=== PATIENT | male | born 1940 | race Caucasian/White ===

== ENCOUNTER 2019-06-23 16:44 | Observation (INO) | payer MEDICARE, BC ==
[2019-06-23 17:07] LABS: ABS Eosinophils 0.2 10^3/ul (0-0.6); ABS Lymphocytes 1.3 10^3/ul (1.0-4.8); ABS Monocytes 0.5 10^3/ul (0-0.8); ABS Neutrophils 3.5 10^3/ul (1.5-7.7); Eosinophil % 3.6 %; Hematocrit 41 % (42-52); Hemoglobin 13.9 g/dL (14.0-18.0); Lymphocyte % 23.4 %; Mean Corpuscular HGB Conc 34 g/dL (31-36); Mean Corpuscular Hemoglobin 30 pg (27-31); Mean Corpuscular Volume 89 fL (80-94); Mean Platelet Volume 8.5 fL (7.4-10.4); Platelet Count 167 10^3/uL (150-450); Red Cell Distribution Width 14 % (10-15); White Blood Count 5.5 10^3/uL (3.5-10.8)
[2019-06-23 17:18] LABS: INR 1.13 (0.82-1.09)
[2019-06-23 17:23] LABS: Albumin 4.5 g/dL (3.2-5.2); Albumin/Globulin Ratio 1.7 (1-3); BUN/Creatinine Ratio 19.7 (8-20); Calcium 9.2 mg/dL (8.6-10.3); EGFR African American 66.4 (>60); EGFR Non-African American 54.8 (>60); Globulin 2.7 g/dL (2-4); Potassium 4.3 mmol/L (3.5-5.0); Total Bilirubin 0.4 mg/dL (0.2-1.0); Total Protein 7.2 g/dL (6.4-8.9)
[2019-06-23 17:25] LABS: Troponin I 0.01 ng/mL (<0.03)
--- NOTE | 2019-06-23 19:14 | ED ---
HPI Chest Pain - HPI Summary HPI Summary: 79 year old M arriving via private car from [facility] with daughter complains of intermittent episodes of non-radiating, bilateral chest pain, lasting several minutes, that started while he was eating today 06/23/2019 AM. Patient states he has never had pain like this before. Patient does not have chest pain currently. Patient is a resident at [facility]. Patient called daughter this morning and reported bilateral shoulder and bilateral chest pain. [facility] nurse took his vital signs. Patient had temperature 99.9F. Was seen at [facility] and referred to the ED for further evaluation. Patient denies fever, chills, erythema of eyes, sore throat, chest pain, shortness of breath, cough, abdominal pain, nausea/vomiting, dysuria, hematuria, myalgia, back pain, edema, rash, dizziness. Symptoms rated 0/10 in severity. Symptoms aggravated by nothing. Symptoms alleviated by nothing. Medications reviewed. No cardiac FHx. - History of Current Complaint Chief Complaint: EDChestPainROMI Time Seen by Provider: 06/23/19 18:56 Hx Obtained From: Patient Onset/Duration: Started Hours Ago, Still Present Timing: Constant Current Severity: None Pain Intensity: 0 Pain Scale Used: 0-10 Numeric Chest Pain Location: Diffuse Chest Pain Radiates: No Aggravating Factor(s): Nothing Alleviating Factor(s): Nothing Associated Signs and Symptoms: Positive: Negative - fever, chills, erythema of eyes, sore throat, chest pain, shortness of breath, cough, abdominal pain, nausea/vomiting, dysuria, hematuria, myalgia, back pain, edema, rash, dizziness - Allergy/Home Medications Allergies/Adverse Reactions: Allergies Allergy/AdvReac Type Severity Reaction Status Date / Time No Known Allergies Allergy Verified 06/23/19 17:03 Home Medications: Home Medications Apixaban* [Eliquis*] 5 mg PO BID 06/23/19 [History Confirmed 06/23/19] Atorvastatin* [Lipitor*] 20 mg PO DAILY 06/23/19 [History Confirmed 06/23/19] Cyanocobalamin TAB* [Vitamin B12 TAB*] 1,000 mcg PO DAILY 06/23/19 [History Confirmed 06/23/19] Digoxin 125 mcg PO DAILY 06/23/19 [History Confirmed 06/23/19] Donepezil HCl [Aricept] 10 mg PO DAILY 06/23/19 [History Confirmed 06/23/19] Loperamide CAP* [Imodium CAP*] 2 mg PO Q4H PRN 06/23/19 [History Confirmed 06/23] QUEtiapine TAB* [Seroquel 25 MG TAB*] 25 mg PO BID 06/23/19 [History Confirmed 06/23/19] PMH/Surg Hx/FS Hx/Imm Hx Endocrine/Hematology History: Reports: Other Endocrine/Hematological Disorders - hyperlipidemia Denies: Hx Diabetes Cardiovascular History: Reports: Hx Hypercholesterolemia, Other Cardiovascular Problems/Disorders - atrial flutter Denies: Hx Hypertension Sensory History: Reports: Hx Contacts or Glasses Opthamlomology History: Reports: Hx Contacts or Glasses Psychiatric History: Reports: Hx Anxiety - Surgical History Surgical History: None Infectious Disease History: No Infectious Disease History: Denies: Traveled Outside the [place] in Last 30 Days - Family History Known Family History: Negative: Cardiac Disease - Social History Alcohol Use: None Substance Use Type: Reports: None Hx Tobacco Use: No Smoking Status (MU): Never Smoked Tobacco Review of Systems Negative: Fever, Chills Negative: Erythema Negative: Sore Throat Positive: Chest Pain Negative: Shortness Of Breath, Cough Negative: Abdominal Pain, Vomiting, Nausea Negative: dysuria, hematuria Musculoskeletal: Negative - BACK PAIN Negative: Myalgia, Edema Negative: Rash Neurological/Mental Status: Negative - Dizziness All Other Systems Reviewed And Are Negative: Yes Physical Exam - Summary Physical Exam Summary: Constitutional: Well-developed, Well-nourished, Alert. (-) Distressed Skin: Warm, Dry HENT: Normocephalic; Atraumatic Eyes: Conjunctiva normal Neck: Musculoskeletal ROM normal neck. (-) JVD, (-) Stridor, (-) Tracheal deviation Cardio: Rhythm regular, rate normal, Heart sounds normal; Intact distal pulses; The pedal pulses are 2+ and symmetric. Radial pulses are 2+ and symmetric. (-) Murmur Pulmonary/Chest wall: Effort normal. (-) Respiratory distress, (-) Wheezes, (-) Rales. No reproducible chest tenderness Abd: Soft, (-) tenderness, (-) Distension, (-) Guarding, (-) Rebound Musculoskeletal: (-) Edema Lymph: (-) Cervical adenopathy Neuro: Alert, Oriented x3 Psych: Mood and affect Normal Triage Information Reviewed: Yes Vital Signs On Initial Exam: Initial Vitals Temp Pulse Resp BP Pulse Ox 97.6 F 60 16 139/65 100 06/23/19 16:57 06/23/19 16:57 06/23/19 16:57 06/23/19 16:57 06/23/19 16:57 Vital Signs Reviewed: Yes Procedures - Sedation Patient Received Moderate/Deep Sedation with Procedure: No Diagnostics - Vital Signs Vital Signs Temp Pulse Resp BP Pulse Ox 06/23/19 16:57 97.6 F 60 16 139/65 100 - Laboratory Lab Results: Lab Results 06/23/19 06/23/19 06/23/19 Range/Units 16:57 16:57 16:57 WBC 5.5 (3.5-10.8) 10^3/uL RBC 4.60 (4.18-5.48) 10^6 /uL Hgb 13.9 L (14.0-18.0) g/dL Hct 41 L (42-52) % MCV 89 (80-94) fL MCH 30 (27-31) pg MCHC 34 (31-36) g/dL RDW 14 (10-15) % Plt Count 167 (150-450) 10^3/uL MPV 8.5 (7.4-10.4) fL Neut % (Auto) 62.6 % Lymph % (Auto) 23.4 % [place] % (Auto) 9.5 % Eos % (Auto) 3.6 % Baso % (Auto) 0.9 % Absolute Neuts (auto) 3.5 (1.5-7.7) 10^3/ul Absolute Lymphs (auto) 1.3 (1.0-4.8) 10^3/ul Absolute Monos (auto) 0.5 (0-0.8) 10^3/ul Absolute Eos (auto) 0.2 (0-0.6) 10^3/ul Absolute Basos (auto) 0.0 (0-0.2) 10^3/ul Absolute Nucleated RBC 0.0 10^3/ul Nucleated RBC % 0.0 INR (Anticoag Therapy) 1.13 H (0.82-1.09) Sodium 140 (135-145) mmol/L Potassium 4.3 (3.5-5.0) mmol/L Chloride 106 (101-111) mmol/L Carbon Dioxide 28 (22-32) mmol/L Anion Gap 6 (2-11) mmol/L BUN 25 H (6-24) mg/dL Creatinine 1.27 H (0.67-1.17) mg/dL Est GFR ( Amer) 66.4 (>60) Est GFR (Non-Af Amer) 54.8 (>60) BUN/Creatinine Ratio 19.7 (8-20) Glucose 82 (70-100) mg/dL Calcium 9.2 (8.6-10.3) mg/dL Total Bilirubin 0.40 (0.2-1.0) mg/dL AST 25 (13-39) U/L ALT 25 (7-52) U/L Alkaline Phosphatase 85 (34-104) U/L Troponin I 0.01 (<0.03) ng/mL Total Protein 7.2 (6.4-8.9) g/dL Albumin 4.5 (3.2-5.2) g/dL Globulin 2.7 (2-4) g/dL Albumin/Globulin Ratio 1.7 (1-3) Result Diagrams: 06/23/19 16:57 06/23/19 16:57 Lab Statement: Any lab studies that have been ordered have been reviewed, and results considered in the medical decision making process. - Radiology CXR Radiology Interpretation Completed By: ED Physician - NO ACUTE DISEASE pending official report - EKG 1649 Cardiac Rate: Bradycardia - 57 BPM EKG Rhythm: Sinus Bradycardia Summary of EKG Findings: NO STEMI. ED physician has reviewed and interpreted this EKG. 2053 Cardiac Rate: Bradycardia - 58 BPM EKG Rhythm: Sinus Bradycardia Summary of EKG Findings: NO STEMI. ED physician has reviewed and interpreted this EKG. Re-Evaluation - Re-Evaluation First Eval Re-Evaluation Time: 20:49 Change: Worse - patient having chest pain again per nurse will order another EKG Chest Pain Course/Dx - Course Course Of Treatment: 79 y/o M from [facility] with cardiac hx complains of intermittent episodes of non-radiating, bilateral chest pain, lasting several minutes, that started while he was eating today 06/23/2019 AM. No reproducible chest tenderness upon physical exam. Bloodwork results with no significant abnormalities except for Hgb 13.9, Hct 41, INR 1.13, BUN 25, creatinine 1.27. An EKG shows sinus bradycardia 57 BPM. NO STEMI. A second EKG shows sinus bradycardia 58 BPM. NO STEMI. CXR shows NO ACUTE DISEASE. Heart score of 4. No active chest pain. Spoke with Dr. Saavedra hospitalist who agrees to admit patient. - Diagnoses Provider Diagnoses: Substernal chest pain - Provider Notifications Discussed Care Of Patient With: Alex Saavedra Time Discussed With Above Provider: 19:42 Instructed by Provider To: Other - Dr. Quentin jacintoist is aware of patient and agrees to admit Discharge ED - Sign-Out/Discharge Documenting (check all that apply): Patient Departure - Discharge Plan Condition: Stable Disposition: ADMITTED TO [facility] Referrals: Ana Tran MD [Primary Care Provider] - - Attestation Statements Document Initiated by Scribe: Yes Documenting Scribe: Jacquelin Castillo Provider For Whom Scribe is Documenting (Include Credential): Jose Luis Arroyo MD Scribe Attestation: Jacquelin Mckeon, scribed for Jose Luis Arroyo MD on 06/23/19 at 2125.
[2019-06-23] MEDS ORDERED: Aspirin 81 mg CHEW TAB* 81 MG TAB.CHEW PO ONE (19:21)
[2019-06-23 20:05] LABS: Digoxin 0.8 ng/ml (0.8-2.0)
[2019-06-23] MEDS ORDERED: Nitroglycerin TAB 0.4 MG* 0.4 MG TAB SL ONE (20:49)
[2019-06-23] MEDS ORDERED: Loperamide CAP* 2 MG PO PRN (22:34)
--- NOTE | 2019-06-23 23:54 | HP ---
CC: Dr. Ana Tran * ADMISSION HISTORY AND PHYSICAL: DATE OF ADMISSION: 06/23/19 PRIMARY CARE PHYSICIAN: Dr. Ana Tran. CHIEF COMPLAINT: Chest pain. HISTORY OF PRESENT ILLNESS: This is a 79-year-old male with past medical history of aflutter, diagnosed recently at [facility] in February of last year, anxiety, hyperlipidemia, dementia, is a resident of [facility], [place], was in his usual state of health up until this morning when he woke up and he started having some chest pain after his meal. The patient is pointing to lateral aspect of his chest and ribs and also told his daughter that he was having shoulder pain and he states that it is because of something being mixed in his food, mostly complaining about crappy food at the assisted living facility that he was at. He was having difficulty recollecting the month and the year, stating that it is May of 2007 and unable to recall the city that he was in. Daughter stated that he was recently moved to [place] due to his memory impairment, so he could not recall the exact city name and has dementia, so could not give much other history. He otherwise denies any shortness of breath or palpitations, any abdominal pain, nausea, vomiting, any urinary burning sensation, but again as mentioned, the patient's history by himself is unreliable. He is mostly focused on the fact that he gets bad food at the facility he is living at and has rib pain and pointing towards both lateral aspect of his chest during my evaluation. No other fever or chills were documented. PAST MEDICAL HISTORY: As mentioned atrial flutter, which was diagnosed in February at [place] and has been started on some blood thinners with Eliquis and digoxin. He also has some anxiety for which he was started on some Seroquel and hyperlipidemia, on Lipitor. He was given some metoprolol for his rate control of AFib, but this was stopped due to some reaction, which the daughter is unable to recollect and for his dementia, he is on some donepezil. He also has some B12 deficiency, which he is getting replaced via oral B12 supplementation. ALLERGIES: No known documented allergies. FAMILY HISTORY: Father in his 80s. The patient's mother apparently very young according to the daughter who is present at bedside, but the patient is unable to recollect much details about how his mom and the daughter is unable to give any further family history. SOCIAL HISTORY: The patient used to work in the [employer] and currently retired. Denies any smoking, alcohol, or drug use. With his daughter, Jessika Quan, being the surrogate decision maker and the patient is otherwise full code. REVIEW OF SYSTEMS: A 14-point review of systems did not reveal any new information other than what is mentioned in the HPI. PHYSICAL EXAMINATION GENERAL: The patient is awake, alert, oriented x3, did not appear to be in any acute respiratory distress. VITAL SIGNS: In the ER, BP was noted to be 138/69, heart rate 58, respiration rate 16, saturating 98% on room air, temperature recorded at 97.6. HEAD AND NECK: Atraumatic, normocephalic. Bilateral pupils are reactive. Oral mucosa was moist. Neck: Supple. No jugular venous distention. LUNGS: Clear to auscultation bilaterally. No wheezing, rhonchi, or rales. HEART: S1, S2. Regular rate and rhythm. ABDOMEN: Soft, nontender, nondistended. EXTREMITIES: No cyanosis, clubbing, or edema. DIAGNOSTIC STUDIES/LAB DATA: Labs: CBC shows normal white count, hemoglobin shows mild anemia with hemoglobin of 13.9, hematocrit 41, platelet count was normal. Coagulation profile shows minimally elevated INR at 1.13. Comprehensive metabolic panel shows elevated BUN at 25, creatinine 1.27, which compared to his older lab shows no significant change. Digoxin level was 0.8. EKG showed sinus bradycardia at 57 beats per minute. Repeat EKG again shows sinus bradycardia at 58. Portable chest x-ray did not show any obvious changes. I could not appreciate any rib fractures or any changes in the lungs. No infiltrates or congestive changes were noted and no cardiomyopathy. IMPRESSION: A 79-year-old gentleman with dementia, aflutter, anxiety, hyperlipidemia, here due to chest pain. It is not very clear if this is coronary event. Serial troponins so far have been negative. ASSESSMENT AND PLAN: 1. Chest pain, rule out acute coronary syndrome. Serial troponins so far negative. We will get one more troponin and get an echocardiogram and stress test in the morning. If negative, the patient could be considered to be discharged. Follow up echocardiogram. 2. History of atrial flutter and sinus bradycardia. We will monitor him on telemetry. Continue his digoxin and Eliquis as the digoxin level was therapeutic. 3. History of dyslipidemia. We will check a fasting lipid panel and I will also get an A1c to rule out any underlying diabetes, which is undiagnosed. 4. DVT prophylaxis: The patient is already on Eliquis. 5. Code status: The patient is full code and the daughter is the surrogate decision maker. [id number]/[facility] #: [id number] MTDGardenia
[2019-06-24 05:07] LABS: ABS Eosinophils 0.2 10^3/ul (0-0.6); ABS Lymphocytes 1.3 10^3/ul (1.0-4.8); ABS Monocytes 0.5 10^3/ul (0-0.8); Eosinophil % 4.1 %; Hematocrit 39 % (42-52); Hemoglobin 13.2 g/dL (14.0-18.0); Lymphocyte % 24.9 %; Mean Corpuscular HGB Conc 34 g/dL (31-36); Mean Corpuscular Hemoglobin 30 pg (27-31); Mean Corpuscular Volume 89 fL (80-94); Mean Platelet Volume 7.8 fL (7.4-10.4); Nucleated Red Blood Cells % 0.1; Platelet Count 144 10^3/uL (150-450); Red Blood Count 4.37 10^6 /uL (4.18-5.48); Red Cell Distribution Width 14 % (10-15); White Blood Count 5.1 10^3/uL (3.5-10.8)
[2019-06-24 05:26] LABS: BUN/Creatinine Ratio 19.2 (8-20); Calcium 8.7 mg/dL (8.6-10.3); EGFR African American 64.6 (>60); EGFR Non-African American 53.4 (>60); Potassium 4.2 mmol/L (3.5-5.0)
[2019-06-24] MEDS ORDERED: Apixaban* 5 MG TAB PO SCH (09:00)
[2019-06-24] MEDS ORDERED: QUEtiapine TAB* 25 MG PO SCH (09:00)
[2019-06-24] MEDS ORDERED: Cyanocobalamin TAB* 500 MCG PO SCH (09:00)
[2019-06-24] MEDS ORDERED: Donepezil TAB* 5 MG PO SCH (09:00)
[2019-06-24] MEDS ORDERED: Digoxin TAB* 0.125 MG PO SCH (09:00)
[2019-06-24] MEDS ORDERED: Atorvastatin* 20 MG TAB PO SCH (09:00)
[2019-06-24] MEDS ORDERED: Regadenoson* 0.4 MG/5 ML SYRINGE ONE (09:50)
[2019-06-24] MEDS ORDERED: Aminophylline IV* 25 MG/ML 10 ML VIAL ONE (09:50)
[2019-06-24 12:38] VITALS: BP 142/63
--- NOTE | 2019-06-24 14:00 | CONSULT ---
Subjective Date of Service: 06/24/19 Interval History: Admission Date: 06/23/19 Consult date: 06/24/2019 Service: Hospitalist PCP: Dr. Ana Tran CHIEF COMPLAINT: shoulder, thorax discomfort and fever Reason for consult: stress test results HISTORY OF PRESENT ILLNESS: This is a 79-year-old man with a history as below. He's here with his daughter who lives near [place]. He was recently and moved to [facility] afterwards. His history is not felt to be reliable due to dementia and obtained from daughter and H+P. He was complaining of bilateral shoulder and lateral costal pain and there may have been a fever. He is asymptomatic now. I reviewed his stress MPI. The vasodilator and imaging portions were normal. It was a normal study. The echocardiogram showed no findings that would explain his presentation. PMhx: mike reportedly diagnosed 02/2019 on eliquis and digoxin anxiety hyperlipidemia dementia soc hx: Lives [facility] ALLERGIES: No known documented allergies. FAMILY HISTORY: Non-contributory SOCIAL HISTORY: The patient used to work in the [employer] and currently retired. Denies any smoking, alcohol, or drug use. With his daughter, Jessika Quan, being the surrogate decision maker and the patient is otherwise full code. Medications Active Medications: Apixaban (Eliquis*) 5 mg PO BID [facility] Last Admin: 06/24/19 11:36 Dose: 5 mg Atorvastatin Calcium (Lipitor*) 20 mg PO DAILY [facility] Last Admin: 06/24/19 11:37 Dose: 20 mg Cyanocobalamin (Vitamin B12 Tab*) 1,000 mcg PO DAILY [facility] Last Admin: 06/24/19 11:37 Dose: 1,000 mcg Digoxin (Lanoxin Tab*) 0.125 mg PO DAILY [facility] Donepezil HCl (Aricept Tab*) 10 mg PO DAILY [facility] Last Admin: 06/24/19 11:35 Dose: 10 mg Loperamide HCl (Imodium Cap*) 2 mg PO Q4H PRN PRN Reason: DIARRHEA Quetiapine Fumarate (Seroquel Tab*) 25 mg PO BID [facility] Last Admin: 06/24/19 11:35 Dose: 25 mg Home Medications: Apixaban* [Eliquis*] 5 mg PO BID 06/23/19 [History Confirmed 06/23/19] Atorvastatin* [Lipitor*] 20 mg PO DAILY 06/23/19 [History Confirmed 06/23/19] Cyanocobalamin TAB* [Vitamin B12 TAB*] 1,000 mcg PO DAILY 06/23/19 [History Confirmed 06/23/19] Digoxin 125 mcg PO DAILY 06/23/19 [History Confirmed 06/23/19] Donepezil HCl [Aricept] 10 mg PO DAILY 06/23/19 [History Confirmed 06/23/19] Loperamide CAP* [Imodium CAP*] 2 mg PO Q4H PRN 06/23/19 [History Confirmed 06/23] QUEtiapine TAB* [Seroquel 25 MG TAB*] 25 mg PO BID 06/23/19 [History Confirmed 06/23/19] Review of Systems - Measurements Intake and Output: Intake and Output Last 24 Hours 06/22/19 06/23/19 06/24/19 06/25/19 06:59 06:59 06:59 06:59 Intake Total 0 Balance 0 Weight 175 lb 6.4 oz Intake: Oral 0 - Review of Systems Review of Systems Statement: unobtainable due to dementia history Objective Vital Signs: Temp Pulse Resp BP Pulse Ox 97.4 F 55 20 142/63 100 06/24/19 11:43 06/24/19 11:43 06/24/19 11:43 06/24/19 11:43 06/24/19 11:43 Oxygen Devices in Use Now: None Appearance: nad, pleasant Ears/Nose/Mouth/Throat: NL Teeth, Lips, Gums, Clear Oropharnyx Neck: NL Appearance and Movements; NL JVP, Trachea Midline Respiratory: Symmetrical Chest Expansion and Respiratory Effort, Clear to Auscultation Cardiovascular: NL Sounds; No Murmurs; No JVD, RRR, No Edema Abdominal: NL Sounds; No Tenderness; No Distention Extremities: No Edema Skin: No Rash or Ulcers Neurological: - - awake, alert Laboratory Results: 06/24/19 05:01 06/24/19 05:01 INR (Anticoag Therapy) 1.13 (0.82-1.09) H 06/23/19 16:57 Total Bilirubin 0.40 mg/dL (0.2-1.0) 06/23/19 16:57 AST 25 U/L (13-39) 06/23/19 16:57 ALT 25 U/L (7-52) 06/23/19 16:57 Alkaline Phosphatase 85 U/L (34-104) 06/23/19 16:57 Total Protein 7.2 g/dL (6.4-8.9) 06/23/19 16:57 Albumin 4.5 g/dL (3.2-5.2) 06/23/19 16:57 Globulin 2.7 g/dL (2-4) 06/23/19 16:57 Albumin/Globulin Ratio 1.7 (1-3) 06/23/19 16:57 Triglycerides 71 mg/dL 06/24/19 05:01 Cholesterol 126 mg/dL 06/24/19 05:01 LDL Cholesterol 60 mg/dL 06/24/19 05:01 HDL Cholesterol 52.0 mg/dL 06/24/19 05:01 06/23/19 06/23/19 06/23/19 16:57 20:07 23:05 Troponin I 0.01 0.01 0.01 Diagnostic Imaging: Exam Date: 06/23/19 cxr IMPRESSION: No acute cardiopulmonary process by radiograph. EKG Data: Ekg NSr 57 bpm, lafb Assessment/Plan I am not sure what the cause of patients symptoms were. It does not appear to be cardiac related. He can continue the same medications under Dr. Tran's care and be discharged from a cardiac standpoint.
--- NOTE | 2019-06-24 15:18 | ECHO ---
*[facility]* [place] [address] Fax #: [phone] Transthoracic Echocardiogram Patient: Bryant Gonzalez : 1940 Study Date: 06/24/2019 Age: 79 Gender: M HR: 63 bpm Height: 73 in /185.4 cm BSA: 2.03 m^2 Weight: 174.6 lb /79.4 kg BMI: 23.1 kg/m^2 *Criminal Defense Lawyer: * Lalitha Sheehan [facility] *Referring Physician: * Alex Saavedra *Reading Physician: * Farhan Snyder MD Indications: Chest Pain, unspecified. History: Atrial flutter. Risk factors: Dyslipidemia. Conclusions Summary: - Left ventricle: The cavity size is normal. Wall thickness is mildly increased. Systolic function is normal. The estimated ejection fraction is 55-60%. Wall motion is normal; there are no regional wall motion abnormalities. - Right ventricle: The cavity size is normal. Systolic function is normal. Systolic pressure is within the normal range. - Left atrium: The atrium is mildly to moderately dilated. - Aortic root: The aortic root is mildly dilated. - No significant valvular abnormalities noted. Study data: Transthoracic echocardiogram. Procedure: Transthoracic echocardiography was performed. Image quality was good. Complete 2D, spectral Doppler, and color flow Doppler. Location: Bedside. Patient status: Inpatient. Patient room number: 439. Rhythm: Normal sinus rhythm. Findings Left ventricle: The cavity size is normal. Wall thickness is mildly increased. Systolic function is normal. The estimated ejection fraction is 55-60%. Wall motion is normal; there are no regional wall motion abnormalities. There is no consistent Doppler evidence of clinically significant diastolic dysfunction. Patient unable to valsalva appropriately. Right ventricle: The cavity size is normal. Systolic function is normal. Systolic pressure is within the normal range. Left atrium: The atrium is mildly to moderately dilated. Right atrium: The atrium is mildly dilated. Mitral valve: The leaflets are mildly thickened. There is no evidence of stenosis. There is mild regurgitation. Aortic valve: The valve is trileaflet. The leaflets are mildly thickened. There is no evidence of stenosis. There is trace regurgitation. Tricuspid valve: The leaflets are normal thickness. There is no evidence of stenosis. There is mild regurgitation. Pulmonic valve: The leaflets are normal thickness. There is no evidence of stenosis. There is trace regurgitation. Aorta: Aortic root: The aortic root is mildly dilated. Ascending aorta: The ascending aorta is appears normal. Aortic arch: The aortic arch is poorly visualized. Pericardium: There is no significant pericardial effusion. Pulmonary arteries: The main pulmonary artery is normal-sized. Systolic pressure is within the normal range. Systemic veins: Inferior vena cava: The vessel is normal in size. There is (>= 50%) respiratory change in the IVC dimension. Measurements Left ventricle Value Ref Aortic valve Value Ref TIFFANY, LAX 5.2 cm 4.2 - 5.8 Jumana diam, ED 2.2 cm ----- ESD, LAX 3.8 cm 2.5 - 4.0 Peak v, S 1.31 m/sec ----- FS, LAX 28 % 25 - 43 VTI, S 26.9 cm ----- PW, ED, LAX (H) 1.1 cm 0.6 - 1.0 Mean grad, S 3.0 mm Hg ----- FS 28 % 25 - 43 Peak grad, S 7.0 mm Hg ----- PW, ED (H) 1.1 cm 0.6 - 1.0 LVOT/AV, VTI ratio 0.59 ----- E', lat jumana, TDI (L) 7.0 cm/sec >=10.0 E/e', lat jumana, 9 Mitral valve Value Ref TDI Peak E 0.64 m/sec ----- E', med jumana, TDI (L) 5.8 cm/sec >=7.0 Peak A 0.55 m/sec --- -- E/e', med jumana, 11 Decel time 204 ms ----- TDI Peak E/A ratio 1.2 ----- E', avg, TDI 6.4 cm/sec E/e', avg, TDI 10 <=14 Pulmonic valve Value Ref Peak v, S 1.13 m/sec ----- LVOT Value Ref Peak grad, S 5.0 mm Hg ----- Peak juan, S 0.84 m/sec DE v, ED 0.83 m/sec ----- VTI, S 16.0 cm Mean grad, S 1 mm Hg Tricuspid valve Value Ref TR peak v 2.4 m/sec <=2.8 Ventricular septum Value Ref Peak RV-RA grad, S 23 mm Hg ----- IVS, ED 1.0 cm 0.6 - 1.0 Aortic root Value Ref Right ventricle Value Ref Root diam 3.8 cm <4.2 TIFFANY, LAX 3.1 cm TIFFANY minor ax, A4C (H) 3.8 cm 1.9 - 3.5 Ascending aorta Value Ref mid AAo AP diam, S 3.3 cm ----- Pressure, S 26 mm Hg Pulmonary artery Value Ref Left atrium Value Ref Pressure, S 21.0 mm Hg ----- AP dim, ES 3.50 cm 3.00 - 4.00 Inferior vena cava Value Ref ML dim, A4C 5.0 cm Diam 1.9 cm ----- SI dim, A4C 5.2 cm Vol/bsa, ES, 1-p 33 ml/m^2 12 - 37 A4C Vol/bsa, ES, A/L (H) 41 ml/m^2 16 - 34 Right atrium Value Ref SI dim, ES (H) 6.0 cm 3.4 - 5.3 ML dim, ES, A4C 4.4 cm 2.6 - 4.4 Estimated RAP 3 mm Hg Legend: (L) and (H) tamie values outside specified reference range. Prepared and electronically signed by Farhan Snyder MD 06/24/2019 15:18
--- NOTE | 2019-06-25 02:17 | DS ---
CC: Dr. Tran * DISCHARGE SUMMARY: DATE OF ADMISSION: 06/23/19 DATE OF DISCHARGE: 06/24/19 PRIMARY CARE PROVIDER: Dr. Tran. ATTENDING PHYSICIAN: Dr. Oropeza * (dictated by Himanshu Nuñez NP) CONSULTING PHYSICIAN: Dr. Farhan Snyder, Cardiology. PRIMARY DIAGNOSES: 1. Chest pain. 2. History of atrial flutter/atrial fibrillation. 3. History of dyslipidemia. 4. Anxiety. 5. Dementia. 6. B12 deficiency. STUDIES WHILE IN THE HOSPITAL: 1. EKG, sinus bradycardia. 2. Chest x-ray: Impression: No filtrates or congestive changes were noted. No acute cardiopulmonary process by radiograph. 3. Transthoracic echo: Left ventricle : The cavity size is normal. Wall thickness is mildly increased. Systolic function is normal. The estimated ejection fraction is 55% to 60%. Wall motion is normal. There is no regional wall motion abnormalities. Right ventricle: The cavity size is normal. Systolic function is normal. Systolic pressure is within normal limits. Left atrium: The atrium is mildly to moderately dilated. Aortic root: The aortic root is mildly dilated. No significant valvular abnormalities noted. 4. Nuclear med scan: Nuclear portion revealed low risk. Findings suggested a small area of ischemia in the apex. EKG portion revealed no ischemic changes. DISCHARGE HOME MEDICATIONS: Continued home medications: 1. Seroquel 25 mg p.o. b.i.d. 2. Imodium 2 mg p.o. q.4 hours p.r.n. 3. Aricept 10 mg p.o. daily. 4. Digoxin 125 mcg p.o. daily. 5. Vitamin B12 1000 mcg p.o. daily. 6. Lipitor 20 mg p.o. daily. 7. Eliquis 5 mg p.o. b.i.d. No new discontinued or changed medications. HISTORY OF PRESENT ILLNESS/HOSPITAL COURSE: Mr. Gonzalez is a 79-year-old male with a past medical history significant for atrial flutter/atrial fibrillation, anxiety, dementia, vitamin B deficiency; who presented to the emergency department on 06/23/19 with reports of chest pain. Please see history and physical dictated by Alex Saavedra MD for complete summary of the events leading to this hospitalization, but in short, the patient had lateral chest pain and rib pain and shoulder pain upon waking on 02/13/20. The patient was admitted to the hospital and had repeat troponins, which remained 0.01. The patient remained on tele and had no events. The patient is currently symptom-free. The patient had an echocardiogram, which is unremarkable as mentioned above. The patient had a stress test, which revealed no ischemic changes on EKG portion. Nuclear portion revealed low risk, but possible small area of ischemia in apex. Given this report, Dr. Farhan Snyder was consulted. Dr. Snyder evaluated the patient and reports that he is not sure what was the cause of the patient's symptoms; however, it does not appear to be cardiac. He recommended continuing the same medications and the patient see Dr. Tran in followup. The patient reports that he feels ready for discharge. The patient's daughter is at the bedside and reports she feels he is stable for discharge. The patient is stable for discharge back to [facility]. Vital signs: Temp 97.4, HR 55, RR 20, O2 saturation 100% on room air, BP 142/ 63. REVIEW OF SYSTEMS: A 14-point review of systems was completed, all were negative. PHYSICAL EXAM: General: Mr. Gonzalez is lying in bed, appears to be in no acute distress, appears stated age. HEENT: EOMs intact. Sclerae without icterus. Oral mucosa is most without lesions. Posterior pharynx is clear. Neck: No lymphadenopathy. Respiratory: Symmetric chest expansion. No accessory muscle use. Lungs: Clear to auscultation. No rhonchi, wheezes, rales. CV: Regular rate and rhythm. S1, S2 present. No murmurs, rubs, or gallops. Extremities: Skin is warm and smooth bilaterally. No edema. No clubbing or cyanosis. Pedal pulses are 2+ bilaterally. Musculoskeletal: No pain or deformities. Abdomen: Soft, nontender. Bowel sounds are normoactive. Neuro: The patient is awake, alert, and oriented to self and place. Strength is 5/5 in upper and lower extremities. Skin: Grossly intact without lesions. LABORATORY DATA: WBC 5.1, hemoglobin 13.2, hematocrit 39, platelets 144. Sodium 139, potassium 4.2, chloride 106, carbon dioxide 29, BUN 25, creatinine 1.30. DISCHARGE PLAN/FOLLOWUP: 1. Chest pain. As mentioned above, the patient had cardiac workup that was unremarkable. The patient will be discharged home on this regular mediations. The patient is encouraged to follow up with Dr. Tran in [address] Tran believes, the patient needs Cardiology reevaluation, he can be referred to Dr. Farhan Snyder who has evaluated the patient here in the hospital. 2. Atrial fibrillation/atrial flutter. The patient should continue his digoxin and Eliquis. The patient's digoxin level was therapeutic. 3. Dyslipidemia. The patient should continue his Lipitor. 4. Anxiety. The patient should continue his home medication of Seroquel. 5. Dementia. The patient should continue Aricept. 6. Elevated creatinine. It appears the patient's creatinine is mildly elevated at 1.30. It appears baseline as on 06/02/19, it was 1.25. We have limited records here as the patient is new to the area, therefore, I would recommend a follow up BMP to assess his creatinine in possibly 1 week. In the meantime, avoid nephrotoxic medications. 7. Followup: The patient to follow up with his primary care doctor, Dr. Tran in 1 to 3 days. As above, I would recommend a repeat BMP to reassess creatinine. 8. Education. The patient and daughter were educated on signs and symptoms, any worsening condition, and when to return to the emergency department. Both stated understanding. TIME SPENT: Approximately 45 minutes were spent on this discharge, greater than half that time was spent face to face with the patient discussing discharge plans and instructions. This case has been reviewed with my attending , Dr. Oropeza, who is in agreement with the plan of care. HIMANSHU NUÑEZ, NANCY [id number]/[facility] #: [id number] VICKI
== END 2019-06-24 15:15 | disposition home or self-care (01) ==
LOC: ED 16:44 → INTOOBSV 21:56 → UNDOADMOB 21:56 → MEDTELE 21:56
PROVIDERS: ADMIT Internal Medicine; ATTEND Internal Medicine
DX: R07.9 Chest pain, unspecified (principal); I48.91 Unspecified atrial fibrillation; E78.5 Hyperlipidemia, unspecified; F41.9 Anxiety disorder, unspecified; F03.90 Unspecified dementia, unspecified severity, without behavioral disturbance, psychotic disturbance, mood disturbance, and anxiety; R79.0 Abnormal level of blood mineral; E53.8 Deficiency of other specified B group vitamins; Z79.01 Long term (current) use of anticoagulants; Z79.899 Other long term (current) drug therapy
CPT/HCPCS: 36415; 71045; 78452; 80048; 80053; 80061; 80162; 83036; 84484; 85025; 85610; 87641; 93005; 93306; 99284; A9270-GY; A9502; G0378; J0280; J2785

== ENCOUNTER 2019-12-26 11:56 | Observation (INO) ==
[2019-12-26 13:43] LABS: ABS Lymphocytes 0.4 10^3/ul (1.0-4.8); ABS Neutrophils 9.9 10^3/ul (1.5-7.7); Hematocrit 42 % (42-52); Hemoglobin 14.1 g/dL (14.0-18.0); Lymphocyte % 3.5 %; Mean Corpuscular HGB Conc 34 g/dL (31-36); Mean Corpuscular Hemoglobin 30 pg (27-31); Mean Corpuscular Volume 88 fL (80-94); Mean Platelet Volume 8.6 fL (7.4-10.4); Platelet Count 165 10^3/uL (150-450); Red Blood Count 4.72 10^6 /uL (4.18-5.48); Red Cell Distribution Width 14 % (10-15); White Blood Count 11.3 10^3/uL (3.5-10.8)
[2019-12-26 13:47] LABS: Urine Appearance Cloudy; Urine Bilirubin Negative (Negative); Urine Blood 3+ (Negative); Urine Color Yellow; Urine Glucose Negative (Negative); Urine Ketones Negative (Negative); Urine Nitrite Negative (Negative); Urine Protein Negative (Negative); Urine Specific Gravity 1.023 (1.010-1.030); Urine Urobilinogen Negative (Negative)
[2019-12-26 13:51] LABS: Urine Bacteria Absent (Absent); Urine Red Blood Cell 3+(>10/hpf) (Absent); Urine White Blood Cell 1+(6-10/hpf) (Absent)
[2019-12-26 14:05] LABS: Albumin 4.5 g/dL (3.2-5.2); Albumin/Globulin Ratio 1.5 (1-3); BUN/Creatinine Ratio 14.4 (8-20); C Reactive Protein 25.56 mg/L (<8.01); Calcium 9.4 mg/dL (8.6-10.3); EGFR African American 37.3 (>60); EGFR Non-African American 30.9 (>60); Potassium 4.5 mmol/L (3.5-5.0); Total Bilirubin 0.7 mg/dL (0.2-1.0); Total Protein 7.5 g/dL (6.4-8.9)
[2019-12-26] MEDS ORDERED: NS 0.9% 1000 ml BAG 1,000 ML IV ONE (14:20)
[2019-12-26] MEDS ORDERED: Piperacillin/Tazobac ADVAN 3.375 GM in NS 0.9% 100 ml BAG 100 ML IVPB ONE (14:52)
[2019-12-26] MEDS ORDERED: Ondansetron 4 mg VIAL 2 MG/ML 2 ml VIAL IV PRN (15:45)
[2019-12-26] MEDS ORDERED: NS 0.9% 1000 ml BAG 1,000 ML IV SCH (16:00)
[2019-12-26] MEDS ORDERED: Iohexol 180 (CONTRAST) 10 ML SDV IV ONE (16:22)
[2019-12-26] MEDS ORDERED: Dexamethasone IV 4 MG/ML VIAL 1 ml VIAL ONE (16:41)
[2019-12-26] MEDS ORDERED: Propofol 10 MG/ML 20 ML BTL ONE (16:41)
[2019-12-26] MEDS ORDERED: Ondansetron 4 mg VIAL 2 MG/ML 2 ml VIAL ONE (16:41)
[2019-12-26] MEDS ORDERED: Lidocaine 2% PF 5 ML VIAL ONE (16:41)
[2019-12-26 17:02] LABS: Digoxin 1.1 ng/ml (0.8-2.0)
[2019-12-26] MEDS ORDERED: DiMENhydriNATE IV 50 mg/ml 1 ml VIAL IV PUSH PRN ×2 (18:03→19:00)
[2019-12-26] MEDS ORDERED: Naloxone 0.4 mg VIAL 0.4 mg/ml 1 ml VIAL IV PRN ×2 (18:03→19:00)
[2019-12-26] MEDS ORDERED: cefTRIAXone 1 gm/50 mL NS BAG 1 GM/50 ML BAG IVPB SCH (22:00)
[2019-12-27 06:05] LABS: ABS Lymphocytes 0.6 10^3/ul (1.0-4.8); ABS Neutrophils 9.1 10^3/ul (1.5-7.7); Hematocrit 39 % (42-52); Lymphocyte % 5.2 %; Mean Corpuscular HGB Conc 34 g/dL (31-36); Mean Corpuscular Hemoglobin 30 pg (27-31); Mean Corpuscular Volume 88 fL (80-94); Mean Platelet Volume 8.8 fL (7.4-10.4); Platelet Count 136 10^3/uL (150-450); Red Blood Count 4.38 10^6 /uL (4.18-5.48); Red Cell Distribution Width 14 % (10-15); White Blood Count 10.7 10^3/uL (3.5-10.8)
[2019-12-27 06:20] LABS: BUN/Creatinine Ratio 15.4 (8-20); Calcium 8.5 mg/dL (8.6-10.3); EGFR African American 42.2 (>60); EGFR Non-African American 34.9 (>60); Potassium 4.3 mmol/L (3.5-5.0)
[2019-12-27] MEDS ORDERED: Donepezil HCL 10 mg TAB (NF) PO SCH (09:00)
[2019-12-27 11:55] VITALS: BP 136/59
== END 2019-12-27 14:57 | disposition home or self-care (01) ==
LOC: ED 11:56 → SSU 11:56 → ED 16:20
PROVIDERS: ADMIT Internal Medicine; ATTEND Internal Medicine